=== PATIENT | male | born 1980 | race Caucasian/White ===

== ENCOUNTER 2018-06-07 15:57 | Emergency (ER) | payer SELFPAY ==
[~2018-06-07] VITALS: Ht 188 cm; Wt 118.2 kg
[2018-06-07 16:03] VITALS: BP 127/66; TEMP 97.8
[2018-06-07] MEDS ORDERED: ADVIL200 MG PO (16:34)
[2018-06-07] MEDS ORDERED: TYLENOL 500MG500 MG PO (16:34)
[2018-06-07 16:52] VITALS: PULSE 69
== END 2018-06-07 16:53 | disposition home or self-care (01) ==
LOC: COL.ER 15:57
DX: S46.911A Strain of unspecified muscle, fascia and tendon at shoulder and upper arm level, right arm, initial encounter (principal); S86.911A Strain of unspecified muscle(s) and tendon(s) at lower leg level, right leg, initial encounter; F17.290 Nicotine dependence, other tobacco product, uncomplicated; Z87.81 Personal history of (healed) traumatic fracture; Z79.1 Long term (current) use of non-steroidal anti-inflammatories (NSAID); Z88.8 Allergy status to other drugs, medicaments and biological substances; W00.0XXA Fall on same level due to ice and snow, initial encounter; X50.1XXA Overexertion from prolonged static or awkward postures, initial encounter; Y99.0 Civilian activity done for income or pay
CPT/HCPCS: L1846